=== PATIENT | female | born 1945 | race Caucasian/White ===

== ENCOUNTER 2021-01-29 12:32 | Emergency (ER) | payer MEDICARE ==
[~2021-01-29] VITALS: Ht 175.3 cm; Wt 90.9 kg
[2021-01-29 13:02] VITALS: BP 152/80
[2021-01-29] MEDS ORDERED: LIDOcaine 5% patch TP ONE (15:20)
[2021-01-29] MEDS ORDERED: ondansetron 4mg rapidly disintigrating tab PO ONE (15:20)
[2021-01-29] MEDS ORDERED: ketorolac trometh inj. 60 MG/2 ML VIAL IM ONE (15:20)
[2021-01-29] MEDS ORDERED: HYDROcodone/acetaminophen 5mg/325mg tablet PO ONE (15:20)
[2021-01-29] MEDS ORDERED: ONDA4TAB6 PO (15:30)
[2021-01-29] MEDS ORDERED: CYCL-1 PO (15:30)
[2021-01-29] MEDS ORDERED: LIDO700A32 TOP (15:30)
[2021-01-29] MEDS ORDERED: MELO-100 PO (15:30)
[2021-01-29] MEDS ORDERED: HYDR-3965 PO (15:30)
== END 2021-01-29 16:00 | disposition home or self-care (01) ==
LOC: ER 12:33
DX: M54.89 Other dorsalgia (principal)
CPT/HCPCS: 72100; 72170; 96372; 99284; J1885

== ENCOUNTER 2025-08-31 01:13 | Inpatient (IN) | payer MEDICARE ==
[~2025-08-31] VITALS: Ht 175.3 cm; Wt 94.0 kg
[2025-08-31] VITALS (14 sets, daily range): BP systolic 131–154; BP diastolic 52–68; PULSE 55–78; RESP 13–20; TEMP 97.3–97.8; O2SAT 91–97
[~2025-08-31 01:13] MED LIST: CYCL-1 PO; LIDO-52 TOP; MELO-100 PO; ONDA4TAB6 PO
--- NOTE | 2025-08-31 01:19 | Physician Documentation ---
History of Present Illness General Stated Complaint: CHEST PAIN Time Seen by MD: 01:17 History of Present Illness Initial Comments This is a pleasant 79-year-old female with a known history of AFib, normally anticoagulated with warfarin, stop warfarin a week ago for dental procedure, presents for evaluation of left-sided chest pain radiating to her neck that her from sleep approximately 50 minutes prior to arrival. Never experienced this in the past. The particular palliating or aggravating factors. Reports mild shortness a breath. Aspirin and nitro provided by the EMS crew seemed to have made the pain worse. The pain is not ripping or tearing. Denies any other symptoms. No concern for tobacco, alcohol or illicit substances use Medication Reconciliation Allergies: Coded Allergies: No Known Allergies (Unverified , 05/31/11) Scheduled Cyclobenzaprine* (Cyclobenzaprine*), 1 TAB PO HS Lidocaine (Lidoderm), 1 PATCH TOP DAILY Meloxicam* (Meloxicam*), 1 TAB PO DAILY Ondansetron Hcl (Zofran), 1 TAB PO Q6H Past Medical History Past Medical History: No Pertinent History Past Surgical History: noncontributory Alcohol Use: None Drug Use: none Lives In: Home Review of Systems ROS 10 point review of systems was performed and unless noted above in HPI is n egative for acute process/complaint. Physical Exam Physical Exam Physical Exam GENERAL: Awake, alert, oriented, GCS 15, no apparent distress, non-toxic appearing, answers questions, follows commands appropriately. Examined immediately upon arrival in bed 10. HEENT: Atraumatic, normocephalic, pupils equal, extraocular muscles intact, sclerae anicteric, mucus membranes moist, oropharynx is clear, no stridor. NECK: supple, full active range of motion, trachea midline, no thyromegaly, no lymphadenopathy, no JVD. CARDIOVASCULAR: Irregularly irregular rate/rhythm, no murmurs/gallops/rubs, P ulses are 2+ in all extremities and symmetric. Capillary refill less than 2 seconds. PULMONARY: Nonlabored, good air movement ,no respiratory distress, speaking in full sentences, clear to auscultation bilaterally, no wheezing, no ronchi, no rales, no accessory muscle use. GASTROINTESTINAL: Soft, non-tender, non-distended, normal active bowel sounds, no organomegaly, no pulsatile masses, no CVA tenderness. NEUROLOGIC: Lucid with normal mental status. Normal facial symmetry. Moves all extremities symmetrically and with purpose. No truncal ataxia. Speech is fluid without evidence of dysarthria or aphasia, no focal deficits appreciated. MUSCULOSKELETAL: There is full range of motion of all extremities. There is no joint pain or joint swelling or joint erythema. There is no muscle pain or tenderness or swelling. EXTREMITIES: warm, well-perfused, no cyanosis, no clubbing, no edema, no acute deformities. Skin: warm, dry, no rashes or lesions, no jaundice, no petechiae orpurpura. No ecchymosis. PSYCHIATRIC: Normal affect, normal insight, normal concentration. Focused exam: [] Progress Results/Orders Results/Orders Orders - AUDREY LOWE DO Chest,Single View (08/31/25 01:17) Monitor (08/31/25 01:17) Saline Lock (08/31/25 01:17) Hs Troponin I W Calculations (08/31/25 03:17) Completed Orders - AUDREY LOWE DO Electrocardiogram (08/31/25 01:17) Cbc/Diff (08/31/25 01:17) D-Dimer (08/31/25 01:17) Lipase (08/31/25 01:17) Pt Inr (08/31/25 01:17) PTT (08/31/25 01:17) Chest,Single View (08/31/25 01:17) PBNP (08/31/25 01:17) MG (08/31/25 01:17) CMP (08/31/25 01:17) Hs Troponin I W Calculations (08/31/25 01:17) Ondansetron Inj. (Zofran 4mg/2ml Vial) (08/31/25 01:40) Morphine 4mg/Ml Inj. (Morphine Inj.) (08/31/25 01:40) Medications Received in ER Medications (Trade) Dose Ordered Sig/Kimberley Route PRN Reason Start Time Stop Time Status Last Admin Dose Admin (Zofran 4mg/2ml vial) 4 mg ONCE ONCE IV 08/31/25 01:40 08/31/25 01:42 DC 08/31/25 01:53 4 MG (morphine inj.) 4 mg ONCE ONCE IV 08/31/25 01:40 08/31/25 01:42 DC 08/31/25 01:52 4 MG Vital Signs 08/31/25 08/31/25 08/31/25 01:19 01:30 01:52 Temp 98.1 98.1 Pulse 72 65 Resp 14 64 12 B/P (MAP) 228/82 216/81 (126) Pulse Ox 96 96 Laboratory Tests Test 08/31/25 01:30 White Blood Count 11.2 H Red Blood Count 3.60 L Hemoglobin 11.2 L Hematocrit 33.5 L Mean Corpuscular Volume 93.2 Mean Corpuscular Hemoglobin 31.2 H Mean Corpuscular Hemoglobin Concent 33.5 Red Cell Distribution Width 14.2 Platelet Count 261 Mean Platelet Volume 6.2 L Neutrophils (%) (Auto) 53.6 Lymphocytes (%) (Auto) 33.2 Monocytes (%) (Auto) 9.3 Eosinophils (%) (Auto) 2.9 Basophils (%) (Auto) 1.0 Neutrophils # (Auto) 6.0 Lymphocytes # (Auto) 3.7 Monocytes # (Auto) 1.0 H Eosinophils # (Auto) 0.3 Basophils # (Auto) 0.1 CBC Comment Prothrombin Time 10.5 INR International Normalized Ratio 1.0 Activated Partial Thromboplast Time 27 D-Dimer 0.96 H D-Dimer Comment Coagulation Comments Sodium Level 138 Potassium Level 3.9 Chloride Level 105 Carbon Dioxide Level 24.8 Anion Gap 8 Blood Urea Nitrogen 21 H Creatinine 1.10 H Estimated GFR/1.73 m2 48 BUN/Creatinine Ratio 19.1 Glucose Level 95 Calcium Level 9.5 Magnesium Level 2.1 Total Bilirubin 0.4 Aspartate Amino Transf (AST/SGOT) 17 Alanine Aminotransferase (ALT/SGPT) 16 Alkaline Phosphatase 60 Troponin I High Sensitivity 35 Pro-B-Type Natriuretic Peptide 1892 H Total Protein 6.9 Albumin 3.6 Globulin 3.3 Albumin/Globulin Ratio 1.1 Lipase 20 Chemistry Comments EKG/XRAY/CT/US/VASC/MRI EKG : Additional Comment EKG with the pain and interpreted by myself shows sinus rhythm of 70, first- degree AV block, narrow QRS, no QT prolongation, normal axis, no STEMI. Inferior J-point depression noted. Medical Decision Making Additional information obtaine: other (EMS) Findings Facility Status: ED Holds, RME process The plan was discussed with the patient, who demonstrates clear understanding of the plan and is in agreement with the plan unless otherwise noted in the chart. All questions have been answered, all concerns were addressed unless otherwise documented. I was available throughout their ED stay for frequent reassessment and questions. Differential Diagnoses (considered and possible or likely): [Differential diagnosis considered includes chest wall pain, pleurisy, pneumonia, pulmonary embolus, GERD, esophagitis, gastritis, anxiety, stress reaction, costochondritis, acute coronary syndrome, aortic dissection, pericarditis, myocarditis, or pneumothorax.] ??Differential Diagnoses (considered and unlikely, not requiring evaluation currently): [Aortic/great vessels dissection was considered but it is unlikely based on absence of ripping, tearing, migratory chest pain, absence of syncope or focal neurologic deficits, physical examination indicating equal and symmetric pulses.] MDM Data Please see [facility] for the following: Independent Historians and external Records Review. Historian: [Patient] Independent Historians: ?[EMS, record review] Medication Management: [Reviewed medication list] Social History and determinants: [Reviewed] Please see the body of the note for the following: Any independent interpretations of ECG, imaging studies. All vitals signs/haemodynamics, ordered tests were independently reviewed and interpreted by myself. Nursing triage complaint and vitals reviewed, additional nursing notes were reviewed as available and I agree unless otherwise noted or documented in contradiction in the chart Vital Signs: Independently reviewed Labs: Independently interpreted Imaging: Independently interpreted Old Medical Records: Independently reviewed, see [facility] for relevant summary and information Pulse Oximetry: [95%] interpreted as [normal on room air] by me [Outside Contractor Sales: [Regular Rate, Regular rhythm, no ectopy, NSR] reviewed and interpreted by me] Additionally notably showing: [Hemodynamics reviewed. The patient is hypotensive, improved with the pain management. No evidence of tachycardia or respiratory distress. Laboratory studies reviewed. Hematology panel is negative for leukocytosis. Mild anemia noted. Normal platelets. No neutrophilic predominance. Coagulation panel shows normal INR consistent with the patient's has been stopped taking her warfarin. D-dimer is elevated, we will obtain CTA. Chemistry is notable for dehydration. BNP is elevated concerning for CHF exacerbation versus hypertensive emergency. Troponin is negative on the 1st round. Chest x-ray is unremarkable.] Tests considered but not ordered include: [Echo and Lexiscan can be done on the inpatient basis] Social Determinants of Health Impact: Patient was evaluated in [facility], or [facility] [place] with limited access to healthcare due to below par ratio of patient to medical providers. [] Comorbid Conditions Impacting Present Evaluation and Care/Treatment: [History of AFib] Management Discussions with other Healthcare Providers: [Hospitalist regarding admission] Treatment and Disposition Medication Management (Given or considered): [A management]. See EMR for details Consideration for Hospitalization/Escalation/Deescalation of Care: Admission for observation is necessary for further workup of her chest pain ?ED Course:?[No clinical deterioration.] ?Shared decision making:?[] Code status:?FULL Please see the full Electronic Medical Record for full details of nursing documentation, medications list, other records of complete past medical history and conditions, vital signs, laboratory studies, and any radiologic study interpretations by radiologists. Portions of this note were completed using [employer] dictation software and as a result there may exist minor errors in spelling. I have reviewed elements of past family and social history and agree as included in note. Differential Diagnosis See body of main note for differential diagnosis Departure Disposition: 09 ADMITTED INPATIENT Admitted to Inpatient Unit: to hospitalist Impression: Primary Impression: Acute chest pain Additional Impressions: Hypertensive emergency Elevated brain natriuretic peptide (BNP) level Condition: Stable Referrals: NO PRIMARY CARE PROVIDER (PCP) Signature Scribe Signature: No scribe Attestation: Date: Aug 31, 2025 Time: 01:24 This note accurately reflects clinical decisions, work performed by myself, DO MYNOR Torres NICHOLAS M DO Aug 31, 2025 01:19
--- NOTE | 2025-08-31 01:23 | ELECTROCARDIOGRAPH REPORT ---
[facility] Test Date: 2025-08-31 Test Time: 01:20:02 Pat Name: ASHLY ANNE Department: EMERGENCY ROOM [id number] Room: [place] [address] Gender: F It Trainer: ZULMA : 1945 Requested By: AUDREY LOWE Order Number: [id number] Reading MD: Dr. Robert Houston Measurements Intervals [facility] Rate: 70 P: -13 MT: 217 QRS: 17 QRSD: 88 T: 61 QT: 411 QTc: 444 Interpretive Statements Sinus rhythm Atrial premature complex Borderline prolonged MT interval Electronically Signed On 09-02-2025 9:40:[address] Robert Houston Please click the below link to view image of tracing.
[2025-08-31 01:48] LABS: MEAN PLATELET VOLUME 6.2 FL (7.4-10.4); RED CELL DISTRIBUTION WIDTH 14.2 % (11.5-14.5)
[2025-08-31] MEDS: morphine 4 MG/ML inj SYRINge IV ONE (01:52)
--- NOTE | 2025-08-31 01:52 | RADIOLOGY REPORT ---
CHEST RADIOGRAPH Indication: Chest pain, radiating left neck Technique: Single frontal view of the chest was obtained COMPARISON: None FINDINGS: Lungs and pleural spaces are clear. Cardiac silhouette and reta are within normal limits. Bones and soft tissues demonstrate no significant abnormality. IMPRESSION: No acute disease.
[2025-08-31] MEDS: ondansetron/PF 4mg/2ml inj IV ONE (01:53)
[2025-08-31 02:03] LABS: APTT 27 SECONDS (22-32); INR 1.0 INR
[2025-08-31 02:06] LABS: CREATININE 1.10 MG/DL (0.40-0.90); TOTAL CARBON DIOXIDE 24.8 MMOL/L (24-32); eCRCL 42 ML/MIN; eGFR 48 ML/MIN
[2025-08-31 02:15] LABS: PRO BRAIN NATRIURETIC PEPTIDE 1892 PG/ML (0-450)
[2025-08-31] MEDS: fentaNYL/PF 50MCG/1 ML 2ML syringe IV ONE (02:40)
--- NOTE | 2025-08-31 04:04 | RADIOLOGY REPORT ---
INDICATION: Chest pain, elevated D-dimer TECHNIQUE: Multidetector CTA of the chest was performed of the chest with 100 cc of intravenous contrast. PULMONARY ANGIOGRAPHY PROTOCOL was utilized using a bolus-tracking technique centered on the main pulmonary artery. Axial, coronal and sagittal multiplanar and MIP reformats were performed. Radiation Dose Information: CT Dose: Dose-length product is 945 mGy*cm The dose indicators for CT are the volume Computed Tomography (CT) Dose Index (CTDIvol) and the Dose Length Product (DLP), and are measured in units of mGy and mGy-cm, respectively. These indicators are not patient dose, but values generated from the CT scanner acquisition factors. The report includes radiation exposure data for exposures received during this examination. Comparison: Chest x-ray 08/31/2025 Findings: Small foci of air are noted within the venous system likely related to injection. Evaluation of the pulmonary arteries demonstrates no evidence of a focal filling defect to suggest a pulmonary embolus. The heart is prominent size with coronary artery calcifications. No sizable pericardial or pleural effusion. Mild pulmonary vascular congestion and interstitial prominence with bibasilar dependent atelectasis. No areas of focal consolidation. The esophagus appears mildly patulous and air-filled. There is a small hiatal hernia. Visualized portions of the upper abdomen demonstrate fatty atrophy of the pancreas. No suspicious osseous lesion. Compression deformities of the lower thoracic spine and upper lumbar vertebral bodies appear chronic but new from 2020 x-ray. IMPRESSION: 1. No evidence of pulmonary embolus. 2. Small hiatal hernia with air-filled patulous esophagus 3. Compression deformities of the lower thoracic spine and upper lumbar vertebral bodies appear chronic but new from 2020 x-ray. Correlation with clinical symptoms is recommended.
[2025-08-31] MEDS ORDERED: magnesium Cl slow-release 64mg tablet PO PRN (04:20)
[2025-08-31] MEDS ORDERED: ondansetron/PF 4mg/2ml inj IV PRN (04:20)
[2025-08-31] MEDS ORDERED: potassium Cl 40MEQ/1/2NS 520ml 520 ML IV PRN (04:20)
[2025-08-31] MEDS ORDERED: potassium Cl 20 mEq SR tablet PO PRN ×2 (04:20)
[2025-08-31] MEDS ORDERED: magnesium sulf-water 2g/50mL 50 ML IV PRN (04:20)
[2025-08-31] MEDS ORDERED: magnesium sulf-water 4G/100mL 100 ML IV PRN (04:20)
[2025-08-31] MEDS ORDERED: mag hydrox/Alum hydrox/simeth 30ml oral suspension PO PRN (04:20)
[2025-08-31] MEDS ORDERED: HYDROcodone/acetaminophen 10/325mg tab PO PRN (04:20)
[2025-08-31] MEDS ORDERED: HYDROcodone/acetaminophen 5mg/325mg tablet PO PRN (04:20)
[2025-08-31] MEDS: PERFLUTREN PROTEIN-A MICROSPHR (Optison) 0.22 MG/ML 3ML VIAL IV ONE (04:30)
[2025-08-31] MEDS ORDERED: metoprolol tartrate 1mg/ml inj IV PRN (04:40)
[2025-08-31] MEDS ORDERED: aminophylline 250mg/10ml inj. IV PRN (04:40)
--- NOTE | 2025-08-31 04:49 | HISTORY AND PHYSICAL-Residence ---
History & Physical Providers to CC Resident Creating Document: RADHA DAVALOS RES ~ History of Present Illness Reason for Admit\Complaint: Angina History of Present Illness 79-year-old female with history of AFib on warfarin presented to the ED with chief complaints of retrosternal chest pain radiating to the back. She says that the pain woke her up in the night. It is located retrosternally 10 on 10. Pain radiates to the back. Does not have any aggravating or relieving factors. No associated symptoms of syncope, fever, chills, nausea, vomiting, diarrhea, constipation, palpitation, shortness of breath, headaches or dizziness. She states that she has been off warfarin for a week as she was due to get her dental work on Tuesday. No recent changes in medications. No bleeding problems. She has a PCP Dr. 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 Does not drink or smoke. Denies recreational drug use. Allergies: Coded Allergies: No Known Allergies (Unverified , 05/31/11) Home Medications Home Medications Active Zofran (Ondansetron Hcl) 4 Mg Tablet 1 Tab PO Q6H Lidoderm (Lidocaine) 1 Each Adh..patch 1 Patch TOP DAILY 30 Days may wear up to 12 hours Cyclobenzaprine* (Cyclobenzaprine HCl) 10 Mg Tablet 1 Tab PO HS Meloxicam* (Meloxicam) 7.5 Mg Tablet 1 Tab PO DAILY 30 Days Past Medical History Past Medical History AFib on warfarin Past Surgical History Surgical History Comment Hysterectomy Back surgeries Hip surgery Past Social History Alcohol Use: None Drug Use: None Lives In: Home ROS ROS Reviewed in full. All negative except for pertinent positive HPI. Exam Vitals: Vital Signs Date Time Temp Pulse Resp B/P (MAP) Pulse Ox O2 Delivery O2 Flow Rate FiO2 08/31/25 02:40 18 08/31/25 01:30 98.1 65 216/81 (126) 96 General: General: Awake and Alert, no acute distress. HEENT: Conjunctiva pink, Sclera clear, Mucus Membranes moist. Neck: Supple without masses and tenderness. Resp: Unlabored. Equal breath sounds bilaterally. Heart: Regular rhythm, normal S1 and S2, no rub, murmur or gallop. Abdomen: Soft and non tender no organomegaly. Normal bowel sounds x4 quadrant normoactive. No guarding or rigidity. 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 Skin: Warm and Dry. Diagnostic Data Last Recorded Lab Results: 08/31/2512908/31/[id number] Diagnostic Data: Laboratory Tests Test 08/31/25 01:30 Prothrombin Time 10.5 SECONDS (9.0-12.0) INR International Normalized Ratio 1.0 INR Activated Partial Thromboplast Time 27 SECONDS (22-32) D-Dimer 0.96 MG/L FEU (0-0.50) H D-Dimer Comment Coagulation Comments Advance Care Planning Advanced Care plannin - 30 Minutes (I spent total of 15-30 minutes reviewing various resuscitative measures with the patient. Patient decided to be DNR. She has a POLST that states full treatment, but I discussed with her in detail about advanced care directive and she states that she wants to be a DNR.) Additional Plan 79-year-old female with history of AFib on warfarin presented to the ED with chief complaints of retrosternal chest pain radiating to the back. Angina Heart score 3 point Rule out ACS Dimer 0.96, CTA ruled out PE CTA shows small hiatal hernia with air-filled patulous esophagus, compression deformities lower thoracic and upper lumbar spine EKG no ST/T-wave changes noted Troponin 35, follow up with trend Started aspirin statin and beta carlota Continuous telemetry monitoring Lexiscan in a.m. Per intensivisit recs, consult cardiology in am Elevated BNP She does have bilateral lower extremity edema 1+ We will give her Lasix 20 x 1 Strict Is&Os Fluid restriction 1.5 L a day Follow up with echo AFib on warfarin (warfarin was held in view of dental procedure on Tuesday) Awaiting med rec Code Status: DNR (she has a POLST that says full code but she is awake alert and oriented and on discussion she states that she wants to be DNR) DVT prophylaxis: Heparin Analgesia/sedation: [place] Line/tube: PIV GI prophylaxis: Protonix Nutrition: Heart healthy Prognosis: Guarded Disposition: Continue medical management. Radha Davalos MD. IM Resident PGY-3 I saw and discussed the care of this patient with the resident team and I agree with the assessment and plan as documented Thank you Date of Service: Aug 31, 2025 Billing Provider: WESLY HERNANDEZ MD, ELIZABETH, RES Aug 31, 2025 04:49 WESLY HERNANDEZ MD Aug 31, 2025 12:53
[2025-08-31] MEDS: heparin, porcine 5000 units/ml vial SQ SCH (04:50)
[2025-08-31] MEDS: furosemide 10 MG/1 ML 10ml inj IV ONE (04:55)
[2025-08-31] MEDS: K and/or MAG REPLACEMENT MC SCH (07:50)
[2025-08-31] MEDS: metoprolol succinate 25mg (24-HOUR) SR. Tablet PO SCH (07:57)
[2025-08-31] MEDS: pantoprazole 40mg Tablet.DR PO SCH (07:59)
[2025-08-31] MEDS: regadenoson 0.4mg/5ml syringe IV PRN (11:04)
--- NOTE | 2025-08-31 13:03 | RADIOLOGY REPORT ---
Procedure: NM NM SAMIRA SCAN Exam Date: 08/31/2025 10:16 AM Reason for study/Clinical History: Chest pain Comparison Study: None Myocardial Perfusion Study with SPECT Technique: The patient received an intravenous injection of 8.8 mCi of technetium 99m Myoview while at rest. After a short delay, SPECT tomographic images of the heart were obtained. The patient then went to the stress lab and received an intravenous infusion of Lexiscan utilizing standard protocol. 32.1 mCi of technetium-99m Myoview was injected intravenously following Lexiscan infusion also per standard protocol. After a short delay, gated SPECT tomographic images of the heart were acquired and processed into the standard views. Findings: Normal junction fracture measuring 73 percent. No visualized fixed or reversible perfusion defect. no significant areas that would contribute to degradation of imaging. Impression: 1. Normal left ventricular size, wall motion, and function, without evidence of infarction or of myocardium at ischemic risk. The left ventricular ejection fraction is calculated at 73%.
--- NOTE | 2025-08-31 19:10 | PROGRESS NOTE ---
Daily Progress Note Providers to CC ~ Antibiotic Timeout Antibiotic Ordered?: No Subjective Patient was seen in her room she was waiting to go for the Lexiscan testing. Denied any chest pain to me when I evaluated her. Objective Vital Signs Date Time Temp Pulse Resp B/P (MAP) Pulse Ox O2 Delivery O2 Flow Rate FiO2 08/31/25 15:00 97.4 62 16 147/60 (89) 94 08/31/25 11:19 Room Air 0.0 Result Diagram: 08/31/25 01308/31/25 0130 General-patient not in any acute distress, alert awake chronically ill- appearing, age-appropriate HEENT-atraumatic normocephalic, neck supple without elevated JVD, no thyromegaly or carotid bruit. No lymphadenopathy bilaterally. Eyes-no icterus or pallor seen in eyes Chest-clear to auscultation bilaterally, breathing nonlabored no tachypnea, no wheezing, no crepitation, no crackles. Heart-S1-S2 normal, regular heart rate no murmur Abdomen bowel sounds positive on auscultation, soft nondistended nontender no guarding, no rigidity Skin no active skin rash Neurology-grossly intact, nonfocal alert awake , signs of mild dementia present Extremity- trace pedal edema able to move all 4 extremities Psychiatry - patient is not confused or agitated cooperated during physical examination Coagulation Studies Laboratory Tests Test 08/31/25 01:30 Prothrombin Time 10.5 SECONDS (9.0-12.0) INR International Normalized Ratio 1.0 INR Activated Partial Thromboplast Time 27 SECONDS (22-32) D-Dimer 0.96 MG/L FEU (0-0.50) H D-Dimer Comment Coagulation Comments Problem\Assessment\Plan 79-year-old female with history of AFib on warfarin presented to the ED with chief complaints of retrosternal chest pain radiating to the back. Angina Heart score 3 point Rule out ACS Dimer 0.96, CTA ruled out PE CTA shows small hiatal hernia with air-filled patulous esophagus, compression deformities lower thoracic and upper lumbar spine EKG no ST/T-wave changes noted Troponin 35, follow up with trend on aspirin statin and beta carlota Continuous telemetry monitoring Lexiscan done today showed Normal left ventricular size, wall motion, and function, without evidence of infarction or of myocardium at ischemic risk. Elevated BNP got Lasix 20 x 1 dose Strict Is&Os Fluid restriction 1.5 L a day Echo testing done today preliminary results reviewed AFib on warfarin (warfarin was held in view of dental procedure on Tuesday) Home medication reconciliation done today Code Status: DNR (she has a POLST that says full code but she is awake alert and oriented and on discussion she states that she wants to be DNR) DVT prophylaxis: Heparin Analgesia/sedation: [place] Line/tube: PIV GI prophylaxis: Protonix Nutrition: Heart healthy Patient's current condition is guarded. She needs physical therapy evaluation before her discharge. We will discuss care plan with family members in a.m. Date of Service: Aug 31, 2025 Billing Provider: ROLANDO MARTEL MD Common Visit Codes: [id number] INP/OBS CARE(HIGH) ROLANDO MARTEL MD Aug 31, 2025 19:10
--- NOTE | 2025-08-31 19:10 | CARDIOLOGY REPORT ---
APPROVED REPORT EXAM: Comprehensive 2D, Doppler, and color-flow Echocardiogram. Patient Location: 30[address] Heart Rate: 60's bpm Rhythm: SINUS Indications ANGINA ATRIAL FIBRILLATION Tree Trimmer: Sung Horne MD Previous echo: NONE 2D Dimensions RVDd 3.9 cm IVSd 1.1 (0.7-1.1cm) LVDd 4.4 cm PWd 1.0 (0.7-1.1cm) IVSs 1.3 (0.8-1.2cm) LVDs 3.0 (2.5-4.0cm) PWs 1.3 (0.8-1.2cm) LVOT Diameter 2.22 (1.8-2.4cm) LVEF(%) 60.7 (>50%) FS (%) 32.2 % SV 53.4 ml CO 3.3 L/min M-Mode Dimensions Left Atrium(MM) 4.51 (2.5-4.0cm) Aortic Root 2.80 (2.2-3.7cm) Aortic Cusp Exc 1.71 (1.5-2.0cm) Aortic Valve AoV Peak Rickie. 203.7 cm/s AoV VTI 43.2 cm AO Peak GR. 16.6 mmHg AO Mean GR. 8 mmHg LVOT VTI 28.99 cm LVOT Peak Rickie. 126.4 cm/s CRESENCIO(VTI)/BSA 2.61 cm2/m2 CRESENCIO (VTI) 2.61 cm2 AV DI 0.67 % Mitral Valve MV E Velocity 79.5 cm/s MV Peak Gr. 7 mmHg MV DECEL TIME 176 ms MV A Velocity 103.9 cm/s MV PHT 68 ms E/A Ratio 0.8 MVA (PHT) 3.24 cm2 MV VMax 133.4 cm/s TDI Lateral E' P. V 9.16 cm/s E/Lateral E' 8.7 Tricuspid Valve TR P. Velocity 316 cm/s RAP ESTIMATE 10 mmHg TR Peak Gr. 40 mmHg RVSP 50 mmHg Pulmonary Vein S1 Velocity 50.7 cm/s D2 Velocity 35.8 cm/s PVa Velocity 26.3 cm/s PVa Duration 128 msec LEFT VENTRICLE Normal LV size and wall thickness. Overall systolic function is normal. LVEF is 60%. RIGHT VENTRICLE RV is mildly dilated with normal function. Elevated right heart pressures with an RVSP fo 50 mmHg. ATRIA Left atrium is mildly dilated. AORTIC VALVE Trileaflet AV appears mildly sclerotic without stenosis. Mild insufficiency. MITRAL VALVE Mild MV annular calcification without stenosis. Trace regurgitation. TRICUSPID VALVE TV appears structurally normal with mild regurgitation. PULMONIC VALVE Normal PV without stenosis, physiologic insufficiency. GREAT VESSELS The aortic root is normal in size. PERICARDIUM Normal pericardium. No effusion. Other Information Study Quality: Adequate Conclusion Normal LV size and wall thickness. Overall systolic function is normal. LVEF is 60%. RV is mildly dilated with normal function. Elevated right heart pressures with an RVSP fo 50 mmHg. Left atrium is mildly dilated. Trileaflet AV appears mildly sclerotic without stenosis. Mild insufficiency. Mild MV annular calcification without stenosis. Trace regurgitation. TV appears structurally normal with mild regurgitation. Normal pericardium. No effusion.
[2025-09-01 01:14] LABS: LEUKOCYTE ESTERASE ,URINE NEGATIVE (Neg); NITRITES, URINE NEGATIVE (Neg); OCCULT BLOOD,URINE TRACE-INTACT (Neg); UA COLLECTION TYPE NON-SPECIFIED
[2025-09-01 01:30] LABS: SQUAMOUS EPITHELIAL CELL,UR MANY /LPF (FEW)
[2025-09-01 02:00] VITALS: BP 138/63; PULSE 62; RESP 16; TEMP 97.2; O2SAT 93
[2025-09-01 06:28] LABS: MEAN PLATELET VOLUME 6.3 FL (7.4-10.4); RED CELL DISTRIBUTION WIDTH 13.9 % (11.5-14.5)
[2025-09-01 06:37] LABS: INR 1.2 INR
[2025-09-01 06:44] LABS: CHOL/HDL RATIO 1.5 (0.00-4.99); CREATININE 1.19 MG/DL (0.40-0.90); LDL CHOLESTEROL 20 MG/DL (50-100); PHOSPHORUS 2.8 MG/DL (2.3-4.5); TOTAL CARBON DIOXIDE 28.7 MMOL/L (24-32); eCRCL 39 ML/MIN; eGFR 44 ML/MIN
[2025-09-01 08:00] VITALS: RESP 16; O2SAT 97
[2025-09-01] MEDS ORDERED: ATOR20TA66 PO (09:21)
[2025-09-01] MEDS ORDERED: METO-395 PO (09:21)
[2025-09-01] MEDS ORDERED: PANT40TA54 PO (09:21)
--- NOTE | 2025-09-01 17:47 | DISCHARGE SUMMARY ---
Discharge Summary Providers to CC ~ Discharge Summary Admission Diagnosis: ANGINA, HX OF A FIB Hospital Course DATE OF ADMISSION: 08/31/25 DATE OF DISCHARGE:09/01/25 PATIENT IS EAGER TO GO TODAY SITTING IN HER HOME CLOTHES CBC testing done on September 01, 2025 WBC 9.7 hemoglobin 10.8 hematocrit 31.6 platelet count 240. Serum chemistry done on September 01, 2025 sodium 139 potassium 4.1 creatinine 1.19 GFR 44 hemoglobin A1c 5.8 normal liver enzymes cardiac markers unremarkable proBNP 1 892. Lipase two 0 lipid panel normal. LDL 20. D-dimer 0.96. Urine culture preliminary report reviewed patient does not have any symptoms of UTI. Echocardiogram.Conclusion Normal LV size and wall thickness. Overall systolic function is normal. LVEF is 60%. RV is mildly dilated with normal function. Elevated right heart pressures with an RVSP fo 50 mmHg. Left atrium is mildly dilated. Trileaflet AV appears mildly sclerotic without stenosis. Mild insufficiency. Mild MV annular calcification without stenosis. Trace regurgitation. TV appears structurally normal with mild regurgitation. Normal pericardium. No effusion. CTA CHEST PE-IMPRESSION: 1. No evidence of pulmonary embolus. 2. Small hiatal hernia with air-filled patulous esophagus 3. Compression deformities of the lower thoracic spine and upper lumbar vertebral bodies appear chronic but new from 2020 x-ray. Correlation with clinical symptoms is recommended. CHEST,SINGLE VIEWIMPRESSION: No acute disease. NM SAMIRA SCAN Impression: 1. Normal left ventricular size, wall motion, and function, without evidence of infarction or of myocardium at ischemic risk. 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 Operations\Procedures: None Consultants: None Complications: None Condition on DC: Stable New Medications: Atorvastatin Calcium (Atorvastatin Calcium) 20 Mg Tablet 20 MG PO DAILY for 30 Days, #30 TAB Metoprolol Succinate (Metoprolol Succinate) 25 Mg Tab.sr.24h 12.5 MG PO DAILY for 30 Days, #15 TAB.SR Pantoprazole Sodium (Pantoprazole Sodium) 40 Mg Tablet.dr 40 MG PO BKF for 30 Days, #30 TAB.SR Continued Medications: Lidocaine (Lidoderm) 1 Each Adh..patch 1 PATCH TOP DAILY for 30 Days, #30 PATCH 0 Refills may wear up to 12 hours Ondansetron Hcl (Zofran) 4 Mg Tablet 1 TAB PO Q6H for nausea, #10 TAB Discontinued Medications: Cyclobenzaprine* (Cyclobenzaprine*) 10 Mg Tablet 1 TAB PO HS for muscle spasms, #10 TAB 0 Refills Discharge Summary: 79-year-old female with history of AFib on warfarin presented to the ED with chief complaints of retrosternal chest pain radiating to the back. During hospitalization patient was treated for Angina Heart score 3 point Ruled out ACS Dimer 0.96, CTA ruled out PE CTA shows small hiatal hernia with air-filled patulous esophagus, compression deformities lower thoracic and upper lumbar spine EKG no ST/T-wave changes noted Troponin 35, follow up with trend on aspirin statin and beta carlota Continuous telemetry monitoring Lexiscan done today showed Normal left ventricular size, wall motion, and function, without evidence of infarction or of myocardium at ischemic risk. 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 Patient is seen and examined on the day of discharge. All labs, diagnostic workup and discharge plan discussed with patient before her discharge. All questions and queries answered to the best of my professional medical knowledge. I heard patient's concerns and address appropriately. Patient was cleared by Physical therapy team for home discharge. patient must use the 4ww at all times was the advice given. patient did refused rehab. PATIENT IS EAGER TO GO TODAY SITTING IN HER HOME CLOTHES. channel sales manager involved in patient's discharge plan. Discharge instructions provided to the patient . Please follow-up with PCP, supplier quality specialist in outpatient setting in 1-2 weeks. Continue warfarin as recommended by Dr. Black in outpatient setting and do PT INR testing with him. Continue to take escitalopram antidepressant in outpatient setting. Activity as tolerated General-patient not in any acute distress, alert awake chronically ill- appearing, age-appropriate HEENT-atraumatic normocephalic, neck supple without elevated JVD, no thyromegaly or carotid bruit. No lymphadenopathy bilaterally. Eyes-no icterus or pallor seen in eyes Chest-clear to auscultation bilaterally, breathing nonlabored no tachypnea, no wheezing, no crepitation, no crackles. Heart-S1-S2 normal, regular heart rate no murmur Abdomen bowel sounds positive on auscultation, soft nondistended nontender no guarding, no rigidity Skin no active skin rash Neurology-grossly intact, nonfocal alert awake , signs of mild dementia present Extremity- trace pedal edema able to move all 4 extremities Psychiatry - patient is not confused or agitated cooperated during physical examination *Problems/Diagnosis: (1) Acute chest pain Status: Acute (2) Hypertensive emergency Status: Acute Total Time Spent on D/C: > 30 Minutes Date of Service: Sep 01, 2025 Billing Provider: ROLANDO MARTEL MD Common Visit Codes: 72573-EZK/OBS DISCH DAY >30min ROLANDO MARTEL MD Sep 01, 2025 17:36
== END 2025-09-01 11:35 | disposition home health service (06) | DRG 543 ==
LOC: ER 01:13 → ED HOLD 02:52 → EDBEDREQ 03:16 → PCU 3S 06:06
PROVIDERS: ADMIT Internal Medicine; ATTEND Internal Medicine
PROC: 4A02XM4 Measurement of Cardiac Total Activity, External Approach (ICD-10-PCS; principal; 2025-08-31)
PROC: 3E073KZ Introduction of Other Diagnostic Substance into Coronary Artery, Percutaneous Approach (ICD-10-PCS; 2025-08-31)
PROC: B32S1ZZ Computerized Tomography (CT Scan) of Right Pulmonary Artery using Low Osmolar Contrast (ICD-10-PCS; 2025-08-31)
PROC: B32T1ZZ Computerized Tomography (CT Scan) of Left Pulmonary Artery using Low Osmolar Contrast (ICD-10-PCS; 2025-08-31)
DX: M48.54XA Collapsed vertebra, not elsewhere classified, thoracic region, initial encounter for fracture (principal); I16.1 Hypertensive emergency; Z66 Do not resuscitate; I50.32 Chronic diastolic (congestive) heart failure; I27.20 Pulmonary hypertension, unspecified; Z79.01 Long term (current) use of anticoagulants; I11.0 Hypertensive heart disease with heart failure; M94.0 Chondrocostal junction syndrome [Tietze]; I20.9 Angina pectoris, unspecified; I48.91 Unspecified atrial fibrillation; R79.89 Other specified abnormal findings of blood chemistry; M43.8X5 Other specified deforming dorsopathies, thoracolumbar region; K44.9 Diaphragmatic hernia without obstruction or gangrene
CPT/HCPCS: 36415; 71045; 71275; 78452; 80048; 80053; 80061; 81001; 83036; 83690; 83735; 83880; 84100; 84484; 85025; 85379; 85610; 85730; 87081; 87088; 93005; 93017; 93306; 96374; 96375; 97116; 97162; 99285; A9500; G0378; J1644; J1938; J2270; J2405; J2785; J3010; Q9967